=== PATIENT | male | born 1965 | race Caucasian/White ===

== ENCOUNTER → 2017-09-01 16:43 | Outpatient (CLI) | payer MEDICAID, SELFPAY ==
[2017-09-01 18:12] LABS: Color, Urine Yellow (Yellow); Glucose, Dipstick Normal (Normal); Ketone-Dipstick Negative (Negative); Leukocyte Esterase-Dipstick Negative /ul (Negative); Nitrite-Dipstick Negative (Negative); Occult Blood-Urine 250 /ul (Negative); Protein-Dipstick Negative (Negative); Urine Bilirubin Dipstick Negative (Negative); Urine Clarity Sl. Cloudy (Clear); Urine Urobilinogen Normal (Normal)
== END ==
PROVIDERS: Family Provider Internal Medicine; PCP Internal Medicine; Visit Provider Internal Medicine
DX: R31.0 Gross hematuria (principal)
CPT/HCPCS: 81002

== ENCOUNTER → 2017-09-13 13:05 | Outpatient (CLI) | payer MEDICAID, SELFPAY ==
--- NOTE | 2017-09-13 13:08 | US_ITS ---
STUDY: ULTRASOUND - URINARY BLADDER REASON FOR EXAM: Male, 52 years old. Hematuria. TECHNIQUE: Ultrasound evaluation of the urinary bladder was performed with real-time and static rabago-scale imaging. COMPARISON: None. FINDINGS: There is no right UVJ calculus. There is a visualized right ureteral jet. There is no left UVJ calculus. There are duplicated left ureteral jets consistent with a duplicated ureteral system. The distended volume of the urinary bladder is 212 ml. The empty volume of the urinary bladder is 5 ml. The bladder wall is within normal limits. The bladder wall measures 3. A lobulated soft tissue mass is seen in the bladder along the right wall. Greatest dimension is 1.5 cm. This needs further evaluation with cystoscopy. There are no demonstrated bladder calculi. US/Post Void Residual Bladder IMPRESSION: A lobulated soft tissue mass is seen in the bladder along the right wall. Greatest dimension is 1.5 cm. This needs further evaluation with cystoscopy. Electronically Signed: Miguel A Krishnan MD at 15:55 EST , Service support ,
== END ==
PROVIDERS: Family Provider Internal Medicine; PCP Internal Medicine; Visit Provider Internal Medicine
DX: R31.0 Gross hematuria (principal)
CPT/HCPCS: 51798

== ENCOUNTER → 2017-10-04 10:59 | Outpatient (CLI) | payer MEDICAID, SELFPAY ==
[2017-10-04 11:45] LABS: Hematocrit 42.1 % (40-54); Hemoglobin 13.6 g/dl (13.0-16.5); Mean Corp Hgb Conc 32.3 g/gl (32-36); Mean Corpuscular Hgb 26.9 pg (27.0-32.0); Mean Corpuscular Volume 83.2 fL (80-94); Mean Platelet Vol. 9.8 fl (6.2-12.0); Platelet Count 314 K/mm3 (150-450); RBC Distribution Width CV 13.5 % (11.6-14.6); RBC Distribution Width SD 40.9 fl (35.1-43.9); Red Blood Count 5.06 M/mm3 (4.6-6.2); White Blood Count 12.3 K/mm3 (4.4-11.0)
[2017-10-04 11:46] LABS: Scan Indicated on CBC? Y/N NO
[2017-10-04 12:01] LABS: Anion Gap 7 (5-15); BUN 21 mg/dL (7-18); BUN/Creat Ratio 26.4 RATIO (10-20); Calcium,Total 9.3 mg/dL (8.5-10.1); Chloride 101 mmol/L (98-107); Creatinine, Serum 0.79 mg/dL (0.70-1.30); EST Glomerular Filtration Rate 108 mL/min (>60); Est Glom Filt Rate - Afr Amer 131 mL/min (>60); Glucose 82 mg/dL (74-106); Potassium 3.7 mmol/L (3.5-5.1); Sodium Level 139 mmol/L (136-145)
== END ==
PROVIDERS: Family Provider Internal Medicine; PCP Internal Medicine
DX: R31.0 Gross hematuria (principal)
CPT/HCPCS: 36415; 80048; 85027

== ENCOUNTER 2017-12-15 16:55 | Emergency (ER) | payer MEDICAID, SELFPAY ==
--- NOTE | 2017-12-15 11:42 | EKG12_ITS ---
Test Reason : Blood Pressure : / mmHG Vent. Rate : 088 BPM Atrial Rate : 088 BPM P-R Int : 140 ms QRS Dur : 080 ms QT Int : 354 ms P-R-T Axes : 061 -03 009 degrees QTc Int : 428 ms Normal sinus rhythm Normal ECG Confirmed by RENITA RITTER MD ([id number]), photographic editor ANDREA VILLAFUERTE ([id number] on 12/22/2017 6:23:19 PM Referred By: Caitlin Ann Confirmed By:RENITA RITTER MD
--- NOTE | 2017-12-15 16:55 | DT_ITS ---
This patient was seen during an EMR downtime December 13, 2017 - December 20, 2017. This patient may have a combination of paper and electronic documentation or all paper documentation. All documentation is viewable within the e-chart portion of [facility] for each patient visit.
--- NOTE | 2017-12-15 18:50 | CT_ITS ---
STUDY: CT ABDOMEN AND PELVIS WITHOUT CONTRAST REASON FOR EXAM: Male, 52 years old. Dysuria. Fever. History. Flank pain RADIATION DOSAGE (If Supplied By Facility): CTDIvol = ( 16.47 ) mGy, DLP = ( 860.17 ) mGycm TECHNIQUE: Transaxial images were obtained from the dome of the diaphragm to the symphysis pubis without oral contrast, and without intravenous contrast. Sagittal and coronal images were reconstructed. Individualized dose optimization techniques were used for this CT. COMPARISON: None. FINDINGS: The lung bases are clear. The liver is normal with no dilated intrahepatic biliary radicles. Previous cholecystectomy The spleen, pancreas and both adrenals are normal. The kidneys are normal with no masses, calculi or hydronephrosis. The stomach is normal. There is no bowel distention, acute appendicitis or diverticulitis. No abnormally constricting large bowel lesions. The abdominal wall is intact. There is no ascites, free intraperitoneal air or any evidence of epiploic appendagitis. The vascular structures in the retroperitoneum are normal The bones and joints seen are normal with no osteolytic or osteoblastic changes. Bilateral total hip replacements. Streak artifact from the replacements obscure details of the pelvis. The prostate therefore cannot be evaluated There is no retrocrural, retroperitoneal or mesenteric adenopathy. There is no mesenteric mistiness The irregular thickening of the right and left lateral hough of the bladder. Transitional cell carcinoma although cystitis is suspected... There is no inguinal or pelvic adenopathy and there is no inguinal hernia. CT/Abdomen/Pelvis without Cont IMPRESSION: No acute findings in the abdomen or pelvis. Specifically there is no acute appendicitis or diverticulitis. Abnormal bladder wall thickening. Transitional cell carcinoma suspected. Chronic cystitis would be a differential consideration Electronically Signed: Wilber Lebron, at 2:28 EDT Tel , Service support ,
[2017-12-18 06:32] LABS: Absolute Lymphocyte Count 1.94 X10^3/ul (0.83-4.51); Absolute Neutrophil Count 8.5 X10^3/uL (2.0-7.7); Basophil# 0.02 X10^3/uL; Basophil% 0.2 % (0-1); Eosinophil# 0.02 X10^3/uL; Eosinophils% 0.2 % (0-5); Hemoglobin 13.8 g/dl (13.0-16.5); Lymphocyte # 1.94 X10^3/ul (4.0); Lymphocyte % 16.5 % (19-41); Mean Corp Hgb Conc 31.4 g/gl (32-36); Mean Corpuscular Hgb 26.1 pg (27.0-32.0); Mean Corpuscular Volume 83.2 fL (80-94); Mean Platelet Vol. 9.5 fl (6.2-12.0); Monocyte% 10.2 % (0-10); Neutrophil # 8.54 X10^3/uL (2.7-7.7); Neutrophil % 72.5 % (47-70); POSITIVE COUNT NO; POSITIVE DIFFERENTIAL NO; POSITIVE MORPHOLOGY NO; Platelet Count 301 K/mm3 (150-450); RBC Distribution Width CV 15.5 % (11.6-14.6); Red Blood Count 5.29 M/mm3 (4.6-6.2); White Blood Count 11.8 K/mm3 (4.4-11.0)
[2017-12-18 08:05] LABS: Anion Gap 8 (5-15); BUN 12 mg/dL (7-18); BUN/Creat Ratio 11.2 RATIO (10-20); Calcium,Total 9.2 mg/dL (8.5-10.1); Chloride 102 mmol/L (98-107); Creatinine, Serum 1.07 mg/dL (0.70-1.30); EST Glomerular Filtration Rate 77 mL/min (>60); Est Glom Filt Rate - Afr Amer 93 mL/min (>60); Glucose 108 mg/dL (74-106); Potassium 3.7 mmol/L (3.5-5.1); Sodium Level 138 mmol/L (136-145)
[2017-12-18 11:19] LABS: Mucous, Urine 0 SEEN /hpf (<or=2+); Squamous Epithelial Cells - UA 0 SEEN /hpf (0-5)
[2017-12-18 11:28] LABS: Bacteria 1+ /hpf (None Seen); Color, Urine Yellow (Yellow); Glucose, Dipstick NEGATIVE (Normal); Ketone-Dipstick Negative (Negative); Leukocyte Esterase-Dipstick 500 /ul (Negative); Nitrite-Dipstick Negative (Negative); Occult Blood-Urine 150 /ul (Negative); Protein-Dipstick 100 mg/dl (Negative); Red Blood Cells-Urine 5-10 SEEN /hpf (0-5); Urine Bilirubin Dipstick Negative (Negative); Urine Clarity Cloudy (Clear); Urine Urobilinogen Normal (Normal)
[2017-12-18 11:29] LABS: White Blood Cells >100 SEEN /hpf (0-5)
== END 2017-12-15 22:50 | disposition home or self-care (01) ==
PROVIDERS: Emergency Provider Emergency Medicine; Family Provider Internal Medicine; PCP Internal Medicine
DX: N30.90 Cystitis, unspecified without hematuria (principal); B96.89 Other specified bacterial agents as the cause of diseases classified elsewhere; I10 Essential (primary) hypertension; K21.9 Gastro-esophageal reflux disease without esophagitis; E78.00 Pure hypercholesterolemia, unspecified; F41.9 Anxiety disorder, unspecified; M48.00 Spinal stenosis, site unspecified; Z87.891 Personal history of nicotine dependence
CPT/HCPCS: 74176; 80048; 81001; 83605; 85025; 87040; 87077; 87086; 87088; 87149; 87186; 93005; 96361; 96365; 96366; 99284; A4216; J2405

== ENCOUNTER 2019-09-21 08:30 | Outpatient (RCR) | payer MEDICAID, SELFPAY ==
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
--- NOTE | 2019-09-05 09:42 | HP.PTREVAL_ITS ---
Ant Sim MD, It has been my pleasure to treat SHARAN CARSON over the last 8 visits for S/P L34 RIGHT MICRODISC. REVISION & MICRODISC. L45 RIGHT 05/23/19. Please see the progress note below for an update on the physical therapy plan of care! Subjective: PATIENT REPORTS THE PAIN HAS GONE DOWN SOME. THE PAIN IS MORE IN THE 4 RANGE THAN THE 6 RANGE. THE STRENGTH AND THE RANGE IS INCREASING. PATIENT REPORTS HE CAN CARRY A LIGHT TRASH BACK NOW AND STARTING TO GET BACK TO NORMAL NOW BUT IS NOT BENDING OVER AND PICKING ANYTHING HEAVY UP OFF THE FLOOR. PATIENT REPORTS HE IS MUCH BETTER NOW BECAUSE HE COULDN'T EVEN GET HIS SHOES ON BEFORE. ABLE TO GET SHOES ON AND TIE THEM NOW MUCH EASIER. PATIENT ALSO REPORTS HE IS NO LONGER HAVING MIGRAINE HEADACHES. STILL HAVING IN NUMBNESS AND TINGLING IN LE'S - ESPECIALLY RIGHT FOOT. REPORTS NUMBNESS AND TINGLING IS GETTING A LITTLE BETTER THOUGH. Objective/Function: PATIENT WAS SEEN TODAY FOR RE-ASSESSMENT OF PROGRESS TOWARD THE SET PT GOALS AND THE NEED FOR FURTHER PHYSICAL THERAPY VS READINESS FOR DISCHARGE. PATIENT IS MAKING GOOD PROGRESS TOWARD ALL PT GOALS AND IS A GOOD CANDIDATE TO CONTINUE FORMAL PT PROGRESSING FROM WATER TO LAND AT THIS POINT. HE IS NOW INDEP WITH A POOL PROGRAM AND PLANS TO CONTINUE WATER EX INDEP'LY AT THE LOCAL [facility] WHILE CONTINUING PT ON LAND. UPON EXAM TODAY: Motor deficit: MARIIA LE'S 5/5 WITH MMT'ING EXCEPT MARIIA HIPS 4/5 (EXCEPT HIP FLEX NOW 5/5). Sensory deficit: DECREASED RIGHT LE LIGHT TOUCH COMPARED TO LEFT. ROM deficit: MILD MARIIA LE HS AND GASTROC SOLEUS COMPLEX TIGHTNESS. Dural Signs: POSITIVE RIGHT LE AND NEGATIVE LLE. Lumbar mvmt loss: flex - NIL. ext - MOD. R SG - MOD. L SG - MOD. PATIENT C/O BACK PAIN AND SORENESS WITH LUMBAR ROM TESTING ALL PLANES. Core strength: STILL POOR BUT IMPROVING AND TOLERATING PROGRESSIVE RESISTIVE EX WELL. PATIENT STARTED TO FATIGUE END OF SESSION TODAY BUT TOLERAT ED ALL EX'S WELL WITH MILD INCREASE IN LOW BACK PAIN WHILE LEARNING PROPER TECHNIQUE FOR DAVID SQUATS. ABLE TO MODIFY ALL EX'S TO BE IN A COMFORTABLE RANGE AND WRITTEN INSTRUCTIONS PROVIDED FOR ALL EX'S GIVEN. Plan Plan: CHECKA AND ADD TO HEP NEEDED. BEGIN GYM EX'S STARTING WITH A NEUTRAL SPINE AND HELP PATIENT TRANSITION TO INDEP GYM PROGRAM FOR [employer] WITH WRITTEN INSTRUCTIONS. Goals Goal 1:: DECREASE C/O BACK AND MARIIA LE SX'S. Goal Time Frame: 8 WEEKS Goal Progress: Progressing Goal 2:: IMPROVE PERSONAL CARE, LIFTING, WALKING, SITTING, STANDING, SLEEP, SOCIAL LIFE, TRAVEL, WORK AND HOMEMAKING FUNCTION. Goal Time Frame: 8 WEEKS Goal Progress: Progressing Goal 3:: INSTRUCT IN PROPHYLAXIS Goal Time Frame: 8 WEEKS Goal Progress: Progressing Anticipated Interventions Patient/Client Instruction: Educate patient on: Condition, Plan of Care, Risk Factors, Benefits of Fitness Program For the Purpose of:: To improve self management Therapeutic Exercise to Include: Strength training, Body mechanics, Postural training, Flexibilty training, In an aquatic setting, Dynamic Lumbar Stabilization For the Purpose of:: To decrease pain, To increase ROM, To improve muscle performance and motor function, To increase tolerance to activity/condition/position, To improve ability of physical actions for home/community/work/leisure Please do not hesitate to contact me at [phone] by phone or if you have questions or concerns regarding this new plan of care! Sincerely, Monica Hill, PT, Cert MDT
--- NOTE | 2019-09-21 09:21 | HP.PTDCSUM ---
HP - PT D/C Summary It has been my pleasure to treat SHARAN CARSON referred by Ant Collado MD, with the diagnosis of S/P L34 RIGHT MICRODISC. REVISION & MICRODISC. L45 RIGHT 05/23/19 for a total of 13 visit(s). Discharge Date: Please see the following information for a summary of their discharge status. - Subjective Subjective: PATIENT REPORTS HE PLANS TO START EXERCISING 5 DAYS A WEEK NEAR HIS HOME AT [facility] ([facility] GYM). STATES DR. COLLADO RELEASED HIM. PATIENT REPORTS HE IS PLAYING IN A BAND. SINGING AND PLAYING BASE. ABLE TO STAND UP DOING IT NOW AND HE USE TO HAVE TO SIT. - Pain Lumbar Spine Pain Intensity (Out of 10): 3 BLEs Pain Intensity (Out of 10): 0 - Overall Improvement % Improvement: 50 - Objective Objective/Function: PATIENT WAS SEEN TODAY FOR RE-ASSESSMENT OF PROGRESS TOWARD THE SET PT GOALS AND THE NEED FOR FURTHER PHYSICAL THERAPY VS READINESS FOR DISCHARGE. HE HAS DONE WELL WITH PHYSICAL THERAPY. HE IS NOW INDEP WITH BOTH LAND AND POOL EXERCISE PROGRAMS AND ALL PT GOALS HAVE BEEN MET. HE IS APPROPRIATE FOR DISCHARGE TO INDEP EX AT THIS TIME AND FOLLOW UP WITH SURGEON NEEDED. UPON EXAM TODAY: Motor deficit: MARIIA LE'S 5/5. Sensory deficit: DECREASED ENTIRE RIGHT LE LIGHT TOUCH COMPARED TO LEFT WITH TESTING PER PATIENT REPORT. ROM deficit: NO. Dural Signs: NEGATIVE MARIIA LE'S. Lumbar mvmt loss: flex - NIL. ext - MOD. R SG - MIN. L SG - MIN. PATIENT DENIES INCREASED PAIN WITH LUMBAR ROM ALL PLANES EXCEPT AT THE ENDS OF THE AVAILABLE ROM ALL PLANES. Core strength: FAIR - Goals Goal 1:: DECREASE C/O BACK AND MARIIA LE SX'S. Goal Progress: Goal Met Goal 2:: IMPROVE PERSONAL CARE, LIFTING, WALKING, SITTING, STANDING, SLEEP, SOCIAL LIFE, TRAVEL, WORK AND HOMEMAKING FUNCTION. Goal Progress: Goal Met Goal 3:: INSTRUCT IN PROPHYLAXIS Goal Progress: Goal Met - Plan Plan: D/C TO INDEP EX. PATIENT IS AGREEABLE. - D/C Information If there are questions or concerns regarding this patient's physical therapy, please feel free to call me at [phone]. Thank you for the referral of this patient. Sincerely, Monica Hill, PT, Cert MDT
== END 2019-09-21 19:00 | disposition home or self-care (01) ==
LOC: PT 08:30
PROVIDERS: Family Provider Internal Medicine; PCP Family Medicine; Referring Provider Orthopaedic Surgery Orthopaedic Surgery of the Spine; Visit Provider Orthopaedic Surgery Orthopaedic Surgery of the Spine
DX: M51.26 Other intervertebral disc displacement, lumbar region (principal); M48.061 Spinal stenosis, lumbar region without neurogenic claudication
CPT/HCPCS: 97110; 97112; 97113; 97162; 97164; 97530

== ENCOUNTER 2020-05-14 09:00 | Outpatient (RCR) | payer MEDICAID, SELFPAY ==
--- NOTE | 2020-04-05 11:31 | HP.OTEVAL ---
Patient's Visit Information SHARAN CARSON is a 54 year old M, referred to Occupational Therapy by ITZEL COFFEY, with a diagnosis of right wrist/pain. Date of Evaluation: 04/02/20 Occupational Therapist: Nickie Proctor, OTKandace/Elfego, CHT - Subjective This 54 year old male was seen for OT eval with dx of right wrist pain and right hand pain - pt states he has been having difficulty with his right hand pain for about 6 months. pt states he feels he is doing more activities to stay health. pt states he can not lift anything. pt states he has been using his hands hard all his life- he does have bilateral CTS and wears braces at night- pt states he did get a cortosone shot 03/25/20 but it wore off quickly. 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 with ADLs and IADLs by d/c Goal:: pt will report no pain greater than 2/10 with use of right UE with ADLs and IADLs by d/c Goal:: pt will demo understanding of work/lifting and carry ergonomics to decrease stress on tendons to increase pts independent with ADLs, IADLS and work tasks by d/c. - Rehabilitation General Assessment: pt demo with right wrist pain and limited ROM - weakness and pain limits pts use of right hand for ADls and IADls. pt would benefit from skilled OT services 2x week for 4 weeks to decrease pain and increase strength for pt to return to his PLOF. Rehabilitation Potential: Good - Anticipated Interventions A/AAROM/PROM, Strengthening, Edema Control, Modalities, Orthoses, Joint Protection/Energy Conservation, Ergonomic Education, Fine Motor Coord/Zechariah - Visit Plan Frequency: 1-2x /Week Duration: 4 Weeks TEXT: Thank you for the opportunity to evaluate your patient. For Medicare and Medicare HMO plans, please review the plan of care and approve it. It will need to be FAXED BACK to us at [phone] for Medicare purposes. Please let me know if there are questions or concerns regarding this plan of care. Physician Signature: Date:
--- NOTE | 2020-05-14 09:02 | HP.OTDCSUM ---
It has been my pleasure to treat SHARAN CARSON under orders from ITZEL COFFEY, for the diagnosis of right wrist/pain for a total of 8 visit(s). Please see the following information for a summary of their discharge status. % Improvement: 20 Objective/Function: right wrist 60/50. right brick and block mason 25# initial was 5#. right lateral pinch 14# initial was 8#. pt limited with ROM and strength due to pain- pt advised to return to for further evaluation. Patient Goals: Regain Strength, Decrease Pain, Improve Fine Motor Skills, Use Hand/Wrist/Arm Normally Again Goal:: pt will demo a increase in right brick and block mason strength by 30# to increase pts ind with ADLs and IADLS by d/c Goal:: pt will demo a increase in right wrist ROM equal to unaffected wrist to increase pts ind. with ADLs and IADLs by d/c Goal:: pt will report no pain greater than 2/10 with use of right UE with ADLs and IADLs by d/c Goal:: pt will demo understanding of work/lifting and carry ergonomics to decrease stress on tendons to increase pts independent with ADLs, IADLS and work tasks by d/c. Plan: D/C as prednisone is gone pts pain and edema returned Discharge Comments: pt was seen for 8 visits- pt using orthosis to provide protection and support- pt was doing well with prednisoe but since medication is gone pts pain and swelling has returned- Therapy has advised pt to return to for further assessment at this time. Pt to use orthosis as needed to decrease pain. pt demo understanding and agree to POC. If there are questions or concerns regarding this patient's occupational therapy, please fell free to call me at [phone]. Thank you for the referral of this patient. Sincerely, Nickie Proctor, OTR/L, CHT
== END 2020-05-14 12:26 | disposition home or self-care (01) ==
LOC: OT 09:00
PROVIDERS: PCP Family Medicine
DX: M25.531 Pain in right wrist (principal); M79.641 Pain in right hand
CPT/HCPCS: 97035; 97140; 97166; 97530; 97760